=== PATIENT | male | born 1990 | race Caucasian/White ===

== ENCOUNTER 2017-05-10 15:53 | Emergency (ER) | payer BC ==
[~2017-05-10] VITALS: Ht 182.9 cm; Wt 95.3 kg
[2017-05-10] MEDS ORDERED: IBUPROFEN 800 MG TABLET PO ONE (16:30)
[2017-05-10] MEDS ORDERED: IBUPROFEN 800 MG TABLET ONE (16:48)
--- NOTE | 2017-05-10 16:51 | NUR ---
PT IS IN ROOM #2B. DR AYALA EVALUATED THE PT.
--- NOTE | 2017-05-10 17:17 | NUR ---
PT WAS D/C TO HOME. D/C INSTRUCTIONS GIVEN TO THE PT.
[2017-05-10 17:18] VITALS: BP 130/70
== END 2017-05-10 17:30 | disposition home or self-care (01) ==
LOC: ER 15:54
DX: S16.1XXA Strain of muscle, fascia and tendon at neck level, initial encounter (principal); V43.52XA Car driver injured in collision with other type car in traffic accident, initial encounter; Y93.89 Activity, other specified; Y92.413 State road as the place of occurrence of the external cause; Y99.9 Unspecified external cause status
CPT/HCPCS: A4663